=== PATIENT | female | born 2000 | race Caucasian/White ===

== ENCOUNTER → 2023-04-04 16:30 | Outpatient (CLI) | payer OTHER, SELFPAY ==
--- NOTE | 2023-04-04 16:32 | DI.MRI.S_ITS ---
PROCEDURE: MR ELBOW LT W CON INDICATIONS: fracture of head of left radius TECHNIQUE: Noncontrast coronal proton density fast spin echo and T2 fast spin echo with fat saturation, axial and sagittal T1 spin echo and T2 fast spin echo with fat saturation through the elbow. COMPARISON: [facility], CT, CT UPPER EXTREMITY LEFT WITHOUT CONTRAST, 03/30/2023, 16:12. FINDINGS: Image quality: Excellent. Lateral structures: The lateral ulnar collateral ligament and radial collateral ligament both appear attenuated with intrasubstance T2 hyperintense signal at their lateral epicondylar insertion. The overlying common extensor tendon appears thickened with intrasubstance T2 hyperintense signal at its lateral epicondylar insertion. Medial structures: The ulnar collateral ligament appears mildly thickened. The overlying common flexor tendon appears normal. The ulnar nerve appears normal in size and signal within the cubital tunnel. Anterior structures: Tendinosis and low-grade partial-thickness tear involving distal biceps tendon at its proximal radial insertion is seen with small amount of fluid within bicipital radial bursa. The brachialis tendon is intact. The median and radial neurovascular bundles appear normal; no focal muscle atrophy to suggest nerve impingement. Posterior structures: The conjoint triceps tendon from the long and lateral heads appears intact. The medial head of the triceps tendon also appears normal, with direct muscle insertion onto the olecranon. No olecranon bursal fluid. Bone and cartilage: Slightly comminuted fracture involving left radial head and neck is seen with slight anterior displacement of the fractured fragment. Extensive marrow edema involving proximal to mid radial shaft extending to radial head and neck region is seen. There is also marrow edema involving dorsal aspect of capitellum with subtle cortical disruption concerning for subtle nondisplaced fracture in this area. Mild contusion involving proximal olecranon is also seen without fracture line or cortical disruption. There is moderate to large joint effusion, no gross intra-articular loose bodies. IMPRESSION: 1. Comminuted and slightly displaced fracture involving radial head and neck as described above. 2. Subtle nondisplaced fracture versus contusion involving posterior aspect of capitellum. 3. Mild bony contusion involving anterior aspect of proximal olecranon. 4. Moderate to large joint effusion, no gross intra-articular loose bodies. 5. Low to moderate grade partial-thickness tear involving proximal lateral collateral ligaments. Tendinosis and low-grade partial-thickness tear involving overlying common extensor tendon origin. 6. Low-grade proximal ulnar collateral ligament sprain. 7. Tendinosis and low-grade partial-thickness tear involving distal biceps tendon at its proximal radial insertion with small amount of fluid within bicipital radial bursa. Dictated by: José Penn M.D. on 04/05/2023 at 16:18 Approved by: José Penn M.D. on 04/05/2023 at 16:24
--- NOTE | 2023-04-04 16:32 | DI.MRI.S_ITS ---
PROCEDURE: MR KNEE LT WO CON INDICATIONS: DISLOCATED LEFT PATELLA TECHNIQUE: Noncontrast sagittal PD fast spin echo and T2 fast spin echo with fat saturation, sagittal 3-D FLASH with fat saturation; coronal T1 spin echo and PD fast spin echo with fat saturation, and axial PD fast spin echo with fat saturation through the knee. COMPARISON: [facility], MR, MR KNEE LEFT WITHOUT CONTRAST, 02/11/2022, 18:51. [facility], CR, XR KNEE 1 OR 2 VIEWS LEFT, 03/26/2023, 19:07. FINDINGS: Image quality: Excellent. Menisci: The medial and lateral menisci demonstrate normal morphology and internal signal. The meniscal root ligaments appear intact. Cruciate ligaments: The anterior and posterior cruciate ligaments appear intact. Medial structures: The medial collateral ligament appears intact. Visualized portions of the pes anserinus tendons appear normal. No abnormal bursal fluid. Lateral structures: The lateral collateral ligament, long and short heads of the biceps femoris tendon appear intact. The popliteus tendon appears normal. Iliotibial band appears normal. Anterior structures: The quadriceps and patellar tendons appear intact. Lateral patellar subluxation is present. Lateral ventral trochlear prominence is present with a shallow trochlear groove. Moderate edema in the infrapatellar fat pad. High-grade tearing of the medial patellofemoral ligament at the patellar insertion site. Bones and cartilage: Moderate ill-defined T2 signal elevation within the medial tibial plateau, and within the lateral nonweightbearing aspect of the lateral femoral condyle. There is mild indentation of the lateral nonweightbearing aspect of the lateral femoral condyle. Full-thickness articular cartilage loss overlies the medial patellar contusion. Mild articular cartilage loss diffusely overlies the weight-bearing aspects of the medial femoral condyle and medial tibial plateau. Joint space: There is a large knee joint effusion with a small amount of internal fat.. No Ronquillo's cyst. Normal appearing synovial plicae are incidentally noted. IMPRESSION: 1. Sequelae of recent lateral patellar dislocation, with associated contusion and full-thickness articular cartilage loss in the medial patella, and mildly depressed fracture in the lateral femoral condyle. There is associated medial patellofemoral ligament tearing, as well as chronic underlying lateral ventral trochlear prominence and a shallow trochlear groove. 2. No internal derangement. 3. Lipohemarthrosis. Dictated by: Fabrizio Sidhu M.D. on 04/05/2023 at 9:52 Approved by: Fabrizio Sidhu M.D. on 04/05/2023 at 9:57
== END ==
PROVIDERS: Referring Provider Orthopaedic Surgery; Visit Provider Orthopaedic Surgery
DX: S52.122A Displaced fracture of head of left radius, initial encounter for closed fracture (principal); S83.005S Unspecified dislocation of left patella, sequela; S53.442A Ulnar collateral ligament sprain of left elbow, initial encounter; S46.212A Strain of muscle, fascia and tendon of other parts of biceps, left arm, initial encounter; M25.422 Effusion, left elbow; X58.XXXA Exposure to other specified factors, initial encounter
CPT/HCPCS: 73221; 73721